=== PATIENT | male | born 1935 | race Two or more races ===

== ENCOUNTER 2019-02-17 21:48 | Inpatient (IN) | payer OTHER ==
[~2019-02-17] VITALS: Ht 175.3 cm; Wt 111.1 kg
== END 2019-02-28 19:56 | disposition home or self-care (01) | DRG 280 ==
LOC: ER 21:48 → ICU-2 02-18 02:45 → ICU 02-20 19:45 → SURH 02-23 20:31
PROVIDERS: ADMIT Internal Medicine
PROC: BW28ZZZ Computerized Tomography (CT Scan) of Head (ICD-10-PCS; 2019-02-17)
PROC: B246ZZZ Ultrasonography of Right and Left Heart (ICD-10-PCS; principal; 2019-02-18)
PROC: 4A12X4Z Monitoring of Cardiac Electrical Activity, External Approach (ICD-10-PCS; 2019-02-18)
PROC: 8E0ZXY6 Isolation (ICD-10-PCS; 2019-02-18)
PROC: C21G1ZZ Planar Nuclear Medicine Imaging of Myocardium using Technetium 99m (Tc-99m) (ICD-10-PCS; 2019-02-19)
PROC: BW40ZZZ Ultrasonography of Abdomen (ICD-10-PCS; 2019-02-20)
DX: I21.4 Non-ST elevation (NSTEMI) myocardial infarction (principal); R65.11 Systemic inflammatory response syndrome (SIRS) of non-infectious origin with acute organ dysfunction; I25.810 Atherosclerosis of coronary artery bypass graft(s) without angina pectoris; J44.1 Chronic obstructive pulmonary disease with (acute) exacerbation; J45.31 Mild persistent asthma with (acute) exacerbation; F32.0 Major depressive disorder, single episode, mild; N17.8 Other acute kidney failure; I13.0 Hypertensive heart and chronic kidney disease with heart failure and stage 1 through stage 4 chronic kidney disease, or unspecified chronic kidney disease; I50.22 Chronic systolic (congestive) heart failure; I11.0 Hypertensive heart disease with heart failure; I24.9 Acute ischemic heart disease, unspecified; N18.2 Chronic kidney disease, stage 2 (mild); I08.3 Combined rheumatic disorders of mitral, aortic and tricuspid valves; I44.4 Left anterior fascicular block; R61 Generalized hyperhidrosis; R31.0 Gross hematuria; E11.22 Type 2 diabetes mellitus with diabetic chronic kidney disease; E11.65 Type 2 diabetes mellitus with hyperglycemia; Z79.4 Long term (current) use of insulin